=== PATIENT | male | born 1965 ===

== ENCOUNTER 2017-07-31 10:25 | Day surgery (SDC) | payer BC ==
[2017-07-31 11:25] VITALS: TEMP 98.4
[2017-07-31] MEDS ORDERED: Propofol 10 mg/ml Inj (20 ML) ONE (13:24)
[2017-07-31] MEDS ORDERED: Lactated Ringer's 500 ML IV SCH (13:45)
[2017-07-31 14:41] VITALS: O2SAT 100
[2017-07-31 14:47] VITALS: BP 129/83; PULSE 64; RESP 16
== END 2017-07-31 14:45 | disposition home or self-care (01) ==
LOC: C.ENDO 10:25
PROVIDERS: ATTEND Internal Medicine Gastroenterology
DX: Z12.11 Encounter for screening for malignant neoplasm of colon (principal); K64.1 Second degree hemorrhoids; Z53.09 Procedure and treatment not carried out because of other contraindication
CPT/HCPCS: 45378; J2704; J7120